=== PATIENT | female | born 1935 | race Caucasian/White ===

== ENCOUNTER 2020-10-09 18:00 | Emergency (ER) | payer MEDICARE ==
--- NOTE | 2020-10-09 23:27 | EDM.PDOC ---
ED HPI GENERAL MEDICAL PROBLEM - General Chief Complaint: ENT Problem Stated Complaint: nosebleed Time Seen by Provider: 10/09/20 18:45 Source of Information: Reports: Patient History Limitations: Reports: No Limitations - History of Present Illness INITIAL COMMENTS - FREE TEXT/NARRATIVE: Pt. presents to ER with complaints of epistaxis from R nare. Pt. has been dealing with recurrent epistaxis and states that her nose was packed. She states that the packing was removed in clinic today. Pt. INR is supratheraputic. She is holding her coumadin for now. Pt. states that several hours after the packing was removed she developed continued bleeding from R nare. Denies any trauma. Denies any chest pain or shortness of breath. Pt. states that the episode of epistaxis did not last long. She was able to control the bleeding with direct pressure. Onset: Today Location: Reports: Face Associated Symptoms: Denies: Chest Pain, Cough, Diaphoresis, Fever/Chills, Nausea/Vomiting, Shortness of Breath - Related Data Allergies Allergy/AdvReac Type Severity Reaction Status Date / Time No Known Allergies Allergy Verified 10/09/20 18:01 Social & Family History - Tobacco Use Tobacco Use Status *Q: Never Tobacco User ED ROS GENERAL - Review of Systems Review Of Systems: Comprehensive ROS is negative, except as noted in HPI. ED EXAM, GENERAL - Physical Exam Exam: See Below General Appearance: Alert, WD/WN, No Apparent Distress Nose: Other (Small area of recent active bleeding noted to medial nasal cavity.) Throat/Mouth: Normal Inspection, Normal Lips, Normal Teeth, Normal Oropharynx, N ormal Voice, No Airway Compromise Head: Atraumatic, Normocephalic Neck: Normal Inspection, Supple ED GENERAL MEDICAL PROCEDURES - Additional/Other Procedure(s) Other (Free Text) Procedure(s): Small open area of recent bleeding in R medial nare was cauterized with silver nitrate stick Course - Vital Signs Last Recorded V/S: Last Vital Signs Temp Pulse Resp 20 10/09/20 18:45 BP Pulse Ox 98 10/09/20 18:45 Departure - Departure Time of Disposition: 19:30 Disposition: Home, Self-Care 01 Clinical Impression: Epistaxis - Discharge Information Instructions: Nosebleed, [id number] Referrals: Dhara Gross PA-C [Primary Care Provider] - Forms: ED Department Discharge Additional Instructions: Home to rest. Do not blow nose tonight. Return to ER if you have recurrence of bleeding. Recheck in clinic in 5-7 days Sepsis Event Note (ED) - Evaluation Sepsis Screening Result: No Definite Risk - Focused Exam Vital Signs: Vital Signs Resp Pulse Ox 10/09/20 18:45 20 98 - Problem List Review Problem List Initiated/Reviewed/Updated: Yes - Assessment/Plan Plan: Cautery was applied to small area of bleeding. The patient was observed for approx. 30 min. No recurrent epistaxis was noted. Pt. advised not to blow nose. She will return to ER if she has recurrent bleeding tonight. All questions were answered.
== END 2020-10-09 18:45 | disposition home or self-care (01) ==
LOC: LL.ED 18:00
DX: R04.0 Epistaxis (principal)
CPT/HCPCS: 30901; 99283; 99283-25